=== PATIENT | female | born 1980 | race Caucasian/White ===

== ENCOUNTER 2016-10-10 02:03 | Emergency (ER) | payer OTHER ==
--- NOTE | 2016-10-10 02:16 | EDM.PDOC ---
ED HPI GENERAL MEDICAL PROBLEM - General Chief Complaint: Abdominal Pain Stated Complaint: BOWEL BLOCKAGE Time Seen by Provider: 10/10/16 02:16 - History of Present Illness INITIAL COMMENTS - FREE TEXT/NARRATIVE: HISTORY AND PHYSICAL: History of present illness: Patient 36-year-old white female who is on OxyContin for chronic back pain Xanax and Adderall presents with a concern of constipation despite a chronic problem she states that several bowel movements and last 7 days his concern of possible bowel obstruction and no vomiting no chills no urinary symptoms no trauma and no other concern. Review of systems: As per history of present illness and below otherwise all systems reviewed and negative. Past medical history: As per history of present illness and as reviewed below otherwise noncontributory. Surgical history: As per history of present illness and as reviewed below otherwise noncontributory. Social history: No reported history of drug or alcohol abuse. Family history: As per history of present illness and as reviewed below otherwise noncontributory. Physical exam: HEENT: Atraumatic, normocephalic, pupils reactive, negative for conjunctival pallor or scleral icterus, mucous membranes moist, throat clear, neck supple, nontender, trachea midline. Lungs: Clear to auscultation, breath sounds equal bilaterally, chest nontender. Heart: S1S2, regular, negative for clicks, rubs, or JVD. Abdomen: Soft, nondistended, nontender. Negative for masses or hepatosplenomegaly. Negative for costovertebral tenderness. Pelvis: Stable nontender. Genitourinary: Deferred. Rectal: Deferred. Extremities: Atraumatic, negative for cords or calf pain. Neurovascular unremarkable. Neuro: Awake, alert, oriented. Cranial nerves II through XII unremarkable. Cerebellum unremarkable. Motor and sensory unremarkable throughout. Exam nonfocal. Diagnostics: Acute abdominal series Therapeutics: None Impression: #1 opiate-induced constipation Definitive disposition and diagnosis as appropriate pending reevaluation and review of above. Abdomen Pain Score (Numeric/FACES): 5 - Related Data Allergies Allergy/AdvReac Type Severity Reaction Status Date / Time azithromycin Allergy Anxiety Verified 10/10/16 02:07 buspirone Allergy Anxiety Verified 10/10/16 02:07 Home Meds: Home Meds ALPRAZolam [Xanax XR] 2 tab PO ASDIRECTED PRN 06/29/14 [History] Spironolactone [Aldactone] 1 tab PO DAILY 06/29/14 [History] Venlafaxine HCl [Venlafaxine ER] 150 mg PO DAILY 06/29/14 [History] Ibuprofen 1 - 2 tab PO ASDIRECTED PRN 03/13/16 [History] Dextroamphetamine/Amphetamine [Dextroamp-Amphetamin 10 mg Tab] 10 mg PO DAILY [History] Omeprazole 20 mg PO BEDTIME 03/15/16 [History] traZODone HCl [Trazodone HCl] 1 mg PO BEDTIME 03/15/16 [History] Past Medical History HEENT History: Reports: Allergic rhinitis Cardiovascular History: Reports: None Respiratory History: Reports: None Gastrointestinal History: Reports: GERD Other Gastrointestinal History: hx gastric ulcer Genitourinary History: Reports: None 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: Musculoskeletal History: Reports: Fibromyalgia Neurological History: Reports: Migraines Psychiatric History: Reports: Anxiety, Depression, Suicide attempt Endocrine/Metabolic History: Reports: None Hematologic History: Reports: None Immunologic History: Reports: None Oncologic (Cancer) History: Reports: None Dermatologic History: Reports: Other (see below) Other Dermatologic History: acne - Infectious Disease History Infectious Disease History: Reports: Chicken pox - Past Surgical History Head Surgeries/Procedures: Reports: None HEENT Surgical History: Reports: Naso-sinus surgery GI Surgical History: Reports: Stew fundoplication Social & Family History - Family History Family Medical History: Unobtainable - Tobacco Use Smoking Status *Q: Current Every Day Smoker Years of Tobacco use: 4 Packs/Tins Daily: 0 - Alcohol Use Days Per Week of Alcohol Use: 0 Number of Drinks Per Day: 0 Total Drinks Per Week: 0 - Recreational Drug Use Recreational Drug Use: No Drug Use in Last 12 Months: No ED ROS GENERAL - Review of Systems Review Of Systems: ROS reveals no pertinent complaints other than HPI. ED EXAM, GENERAL - Physical Exam Exam: See Below (See dictation) Course - Vital Signs Last Recorded V/S: Last Vital Signs Temp 37.1 C 10/10/16 02:07 Pulse 108 H 10/10/16 02:07 Resp 16 10/10/16 02:07 BP 120/80 10/10/16 02:07 Pulse Ox 98 10/10/16 02:07 - Orders/Labs/Meds Orders: Active Orders 24 hr Category Date Time Status Abdomen 2V AP Flat Upright [CR] Stat Exams 10/10/16 02:12 Ordered Chest 1V Frontal [CR] Stat Exams 10/10/16 02:12 Ordered Departure - Departure Time of Disposition: 02:15 Disposition: Home, Self-Care 01 Condition: good Clinical Impression: Constipation Forms: ED Department Discharge Additional Instructions: The following information is given to patients seen in the emergency department who are being discharged to home. This information is to outline your options for follow-up care. We provide all patients seen in our emergency department with a follow-up referral. The need for follow-up, as well as the timing and circumstances, are variable depending upon the specifics of your emergency department visit. If you don't have a primary care physician on staff, we will provide you with a referral. We always advise you to contact your personal physician following an emergency department visit to inform them of the circumstance of the visit and for follow-up with them and/or the need for any referrals to a consulting specialist. The emergency department will also refer you to a specialist when appropriate. This referral assures that you have the opportunity for followup care with a specialist. All of these measure are taken in an effort to provide you with optimal care, which includes your followup. Under all circumstances we always encourage you to contact your private physician who remains a resource for coordinating your care. When calling for followup care, please make the office aware that this follow-up is from your recent emergency room visit. If for any reason you are refused follow-up, please contact the [facility] emergency department at and asked to speak to the emergency department charge nurse. Colace as prescribed push fluids follow up primary medical doctor one to 2 days return as needed as discussed - My Orders Last 24 Hours: My Active Orders 10/10/16 02:12 Abdomen 2V AP Flat Upright [CR] Stat Chest 1V Frontal [CR] Stat - Assessment/Plan Last 24 Hours: My Active Orders 10/10/16 02:12 Abdomen 2V AP Flat Upright [CR] Stat Chest 1V Frontal [CR] Stat
[2016-10-10 03:20] VITALS: BP 109/73
--- NOTE | 2016-10-10 14:56 | CR ---
EXAM DATE: 10/10/16 PATIENT'S AGE: 36 Patient: REJI RAINEY Facility: [place], [place] Site . Site : 1980 Study: XRay Chest [id number]/[id number] 2:36:49 AM Ordering Physician: Doctor Jones Final Report: INDICATION: pain, sob TECHNIQUE: Chest 1 view COMPARISON: None FINDINGS: Cardiovascular and mediastinum: Heart size and vasculature are normal in caliber and appearance. Mediastinum is within normal limits. Lungs and pleural space: No focal consolidation. No sign of pleural effusion. No pneumothorax. Bones and soft tissues: No significant findings. IMPRESSION: No acute cardiopulmonary disease. Dictated by Elbert Colunga MD @ 10/10/2016 2:54:41 AM Dictated by: Elbert Colunga MD @ 10/10/2016 02:54:47 (Electronic Signature) Report Signed by Proxy and Original Signed Document filed in the Medical Record. [email or web address]
--- NOTE | 2016-10-10 14:56 | CR ---
EXAM DATE: 10/10/16 PATIENT'S AGE: 36 Patient: REJI RAINEY Facility: [place], [place] Site . Site : 1980 Study: XRay Abdomen [id number]/[id number] 2:36:26 AM Ordering Physician: Doctor Jones Final Report: INDICATION: constipation x1 week TECHNIQUE: Abdomen 3 view COMPARISON: None FINDINGS: Bowel: Nonspecific air-fluid levels within the colon. Soft tissues: Surgical clips in the left upper quadrant. No sign of soft tissue mass. No suspicious calcifications. Bones: Unremarkable for age. IMPRESSION: Nonspecific air-fluid levels within the colon. Dictated by Elbert Colunga MD @ 10/10/2016 2:53:43 AM Dictated by: Elbert Colunga MD @ 10/10/2016 02:53:52 (Electronic Signature) Report Signed by Proxy and Original Signed Document filed in the Medical Record. [email or web address]
== END 2016-10-10 03:10 | disposition home or self-care (01) ==
LOC: MW.ED 02:03
DX: K59.00 Constipation, unspecified (principal); K21.9 Gastro-esophageal reflux disease without esophagitis; F17.210 Nicotine dependence, cigarettes, uncomplicated; Z88.6 Allergy status to analgesic agent; Z88.8 Allergy status to other drugs, medicaments and biological substances; Z79.899 Other long term (current) drug therapy; Z98.890 Other specified postprocedural states
CPT/HCPCS: 71010; 71010-26; 74020; 74020-26; 99282; 99283

== ENCOUNTER 2017-04-18 06:44 | Day surgery (SDC) | payer OTHER ==
[2017-04-18] MEDS ORDERED: ceFAZolin 2 GM in Premix Bag 1 BAG IV ONE (07:00)
[2017-04-18] MEDS ORDERED: Lactated Ringers 1,000 ML IV SCH (07:00)
[2017-04-18] MEDS ORDERED: Propofol 200 MG/20 ML SDV ONE (07:26)
[2017-04-18] MEDS ORDERED: Ondansetron 4 MG/2 ML SDV ONE (07:26)
[2017-04-18] MEDS ORDERED: Midazolam 1 MG/ML 2 ML SDV ONE (07:27)
[2017-04-18] MEDS ORDERED: fentaNYL 100 MCG/2 ML SDV ONE (07:27)
[2017-04-18] MEDS ORDERED: Bupivacaine 0.25%/EPINEPHrine 1:200,000 10 ML SDV INJECT ONE (07:30)
--- NOTE | 2017-04-18 07:33 | PCM.PREANE ---
Preanesthetic Assessment - Anesthesia/Transfusion/Family Hx Anesthesia History: Prior Anesthesia Without Reaction Other Type of Anesthesia Reaction Comment: Denies any known problems in the past Family History of Anesthesia Reaction: No Transfusion History: No Prior Transfusion(s) - Review of Systems General: No Symptoms Pulmonary: No Symptoms Cardiovascular: No Symptoms Gastrointestinal: No Symptoms Neurological: No Symptoms Other: Reports: None - Physical Assessment NPO Status Date: 04/17/17 Height: 1.63 m Weight: 56.699 kg ASA Class: 2 Mental Status: Alert & Oriented x3 Airway Class: Mallampati = 2 Dentition: Reports: Normal Dentition Lungs: Clear to Auscultation, Normal Respiratory Effort Cardiovascular: Regular Rate, Regular Rhythm - Lab Values: Laboratory Last Values Urine HCG, Qual NEGATIVE (NEGATIVE) 04/18/17 07:00 - Allergies Allergies/Adverse Reactions: Allergies Allergy/AdvReac Type Severity Reaction Status Date / Time azithromycin Allergy Anxiety Verified 10/10/16 02:07 buspirone Allergy Anxiety Verified 10/10/16 02:07 - Anesthesia Plan Pre-Op Medication Ordered: None - Acknowledgements Anesthesia Type Planned: MAC Pt an Appropriate Candidate for the Planned Anesthesia: Yes Alternatives and Risks of Anesthesia Discussed w Pt/Guardian: Yes Pt/Guardian Understands and Agrees with Anesthesia Plan: Yes PreAnesthesia Questionnaire HEENT History: Reports: Allergic Rhinitis, Other (See Below) Other HEENT History: wears glasses/contacts Cardiovascular History: Reports: None Respiratory History: Reports: None Gastrointestinal History: Reports: GERD Other Gastrointestinal History: hx gastric ulcer Genitourinary History: Reports: None 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: Musculoskeletal History: Reports: Back Pain, Chronic, Fracture, Fibromyalgia Other Musculoskeletal History: hx fx leg Neurological History: Reports: Migraines Psychiatric History: Reports: Anxiety, Depression, Suicide Attempt Endocrine/Metabolic History: Reports: None Hematologic History: Reports: None Immunologic History: Reports: None Oncologic (Cancer) History: Reports: None Dermatologic History: Reports: Other (See Below) Other Dermatologic History: acne - Infectious Disease History Infectious Disease History: Reports: Chicken Pox - Past Surgical History Head Surgeries/Procedures: Reports: None HEENT Surgical History: Reports: Naso-Sinus Surgery GI Surgical History: Reports: Stew Fundoplication Female Surgical History: Reports: Breast Reduction - SUBSTANCE USE Smoking Status *Q: Current Every Day Smoker Tobacco Use Within Last Twelve Months: Other (See Below) Other Tobacco Use Within Last Twelve Months: vapor with nicotine content Days Per Week of Alcohol Use: 0 Number of Drinks Per Day: 0 Total Drinks Per Week: 0 Recreational Drug Use History: No - HOME MEDS Home Medications: Home Meds ALPRAZolam [Xanax XR] 1 mg PO ASDIRECTED PRN 06/29/14 [History] Spironolactone [Aldactone] 100 mg PO DAILY 06/29/14 [History] Ibuprofen 1 - 2 tab PO ASDIRECTED PRN 03/13/16 [History] Dextroamphetamine/Amphetamine [Dextroamp-Amphetamin 10 mg Tab] 40 mg PO DAILY [History] Omeprazole 20 mg PO DAILY 03/15/16 [History] traZODone HCl [Trazodone HCl] 200 mg PO BEDTIME 03/15/16 [History] Clindamycin Phos/Benzoyl Perox [Benzaclin Gel] 1 applic TOP ASDIRECTED PRN 04/13 [History] DULoxetine [Cymbalta] 20 mg PO DAILY 04/13/17 [History] Tretinoin/Emollient Base [Tretinoin 0.05% Emollient Crm] 1 applic TOP ASDIRECTED 04/13/17 [History] - CURRENT (IN HOUSE) MEDS Current Meds: Current Medications Hydrocodone Bitart/Acetaminophen ([place] 325-5 Mg) 1 tab PO Q4H PRN PRN Reason: Pain Lactated Ringer's (Ringers, Lactated) 1,000 mls @ 125 mls/hr IV ASDIRECTED RHIANNON Last Admin: 04/18/17 07:18 Dose: 125 mls/hr Discontinued Medications Bupivacaine HCl/Epinephrine Bitart (Marcaine 0.25%/Epinephrine 1:200,000) 10 ml INJECT ONETIME ONE Stop: 04/18/17 07:31 Fentanyl (Sublimaze) Confirm Administered Dose 100 mcg .ROUTE .STK-MED ONE Stop: 04/18/17 07:28 Cefazolin Sodium/Dextrose 2 gm (/ Premix) 50 mls @ 100 mls/hr IV ONETIME ONE Stop: 04/18/17 07:29 Midazolam HCl (Versed 1 Mg/Ml) Confirm Administered Dose 2 mg .ROUTE .STK-MED ONE Stop: 09/13/17 07:28 Ondansetron HCl (Zofran) Confirm Administered Dose 4 mg .ROUTE .STK-MED ONE Stop: 04/18/17 07:27 Propofol (Diprivan 20 Ml) Confirm Administered Dose 200 mg .ROUTE .STK-MED ONE Stop: 04/18/17 07:27
[2017-04-18] MEDS ORDERED: Acetaminophen/HYDROcodone 325-5 MG Tab PO PRN (08:00)
[2017-04-18] MEDS ORDERED: ePHEDrine 50 MG/ML SDV ONE (08:06)
[2017-04-18] MEDS ORDERED: Dexamethasone 4 MG/ML 5 ML MDV ONE (08:08)
[2017-04-18] MEDS ORDERED: Ketorolac 30 MG/ML SDV ONE (08:33)
--- NOTE | 2017-04-18 08:57 | PCM.POSTAN ---
POST ANESTHESIA ASSESSMENT - MENTAL STATUS Mental Status: Alert, Oriented - RESPIRATORY Respiratory Status: Respiratory Rate WNL, Airway Patent, O2 Saturation Stable - CARDIOVASCULAR CV Status: Pulse Rate WNL, Blood Pressure Stable - GASTROINTESTINAL GI Status: No Symptoms - POST OP HYDRATION Hydration Status: Adequate & Stable
--- NOTE | 2017-04-18 08:57 | PCM48HPAN ---
Post Anesthesia Note - EVALUATION WITHIN 48HRS OF ANESTHETIC Vital Signs in Normal Range: Yes Patient Participated in Evaluation: Yes Respiratory Function Stable: Yes Airway Patent: Yes Cardiovascular Function Stable: Yes Hydration Status Stable: Yes Pain Control Satisfactory: Yes Nausea and Vomiting Control Satisfactory: Yes Mental Status Recovered: Yes
[2017-04-18 09:27] VITALS: BP 118/68
--- NOTE | 2017-04-18 11:37 | PCM.OPNOTE ---
- General Post-Op/Procedure Note Date of Surgery/Procedure: 04/18/17 Operative Procedure(s): excision fo nailbed scar and nailbed repair Pre Op Diagnosis: nailbed scar with inhibition of nail growth Post-Op Diagnosis: Same Anesthesia Technique: General LMA, Local Primary Surgeon: Doris Alvarado [place] Hand: Isela Singh Complications: None Condition: Good Free Text/Narrative:: Intake & Output 04/17/17 04/18/17 04/18/17 23:59 07:59 15:59 Intake Total 1899 Balance 1899
--- NOTE | 2017-04-19 11:21 | OR ---
SURGEON: BRITTON VINCENT MD DATE OF PROCEDURE: 04/18/2017 PREOPERATIVE DIAGNOSIS: Nail bed scar, status post open distal phalanx fracture over a year ago. POSTOPERATIVE DIAGNOSIS: Nail bed scar, status post open distal phalanx fracture over a year ago. PROCEDURE: Excision of nail bed scar and direct nail bed repair. ADMISSIONS NURSE: NELSON Longoria ANESTHESIA: General LMA. INDICATIONS: Ms. Collins is a 36-year-old female who had an injury to her finger almost a year ago. Unfortunately, she was unable to obtain the appropriate care at that time due to prior approval and referral through her health system. Because of that, her nails did grow in an abnormal fashion. There was a scar of the nail bed laceration. Risks and benefits of excision repair of this were discussed with her and she was in agreement to proceed. Risks were including, but not limited to, bleeding, infection, damage to underlying or overlying structures, possible need for future interventions, possible scarring. PROCEDURE IN DETAIL: After informed consent was obtained and placed on the chart, the patient was brought to the operating theater and laid in supine position. After adequate general LMA and local anesthesia was obtained, the area was prepped and draped, and a time-out was completed to confirm side and site. The finger was then exsanguinated and a finger tourniquet was placed. The nail was removed to the proximal fold with a sliver left in place to stent this open. The nail scar was not directly visualized to be overlapping and this was excised using a [address] down to the bone. A minimal amount of undermining was then done and a 7-0 chromic stitch was used to reapproximate this in a smooth fashion. She tolerated this well and the wound was dressed with Xeroform fluffs and a Kerlix gauze dressing. She tolerated the procedure well. All counts and needles were correct at the end the case. FOLLOWUP INSTRUCTIONS: The patient will see us in 10 days for re-evaluation or sooner if any problems, questions, or concerns and was given a prescription for pain control. NIDA / ANA /[id number]
== END 2017-04-18 09:27 | disposition home or self-care (01) ==
LOC: MW.SDS 06:44
PROVIDERS: ATTEND Plastic Surgery
DX: L90.5 Scar conditions and fibrosis of skin (principal); L60.8 Other nail disorders; F41.9 Anxiety disorder, unspecified; F32.9 Major depressive disorder, single episode, unspecified; F17.210 Nicotine dependence, cigarettes, uncomplicated; K21.9 Gastro-esophageal reflux disease without esophagitis; M79.7 Fibromyalgia; Z88.1 Allergy status to other antibiotic agents; Z88.8 Allergy status to other drugs, medicaments and biological substances; Z79.899 Other long term (current) drug therapy; Z86.19 Personal history of other infectious and parasitic diseases; Z91.5 Personal history of self-harm; Z98.890 Other specified postprocedural states
CPT/HCPCS: 11750; 81025; J0690; J1100; J1885; J2250; J2405; J3010; J7120; 00400; J2704

== ENCOUNTER 2017-07-16 12:12 | Day surgery (SDC) | payer OTHER ==
[~2017-07-16 12:12] MED LIST: Lactated Ringers 1,000 ML IV SCH; Sodium Chloride 0.9% 10 ML Syringe FLUSH PRN; Sodium Chloride 0.9% 2.5 ML Syringe FLUSH PRN; fentaNYL 100 MCG/2 ML SDV IVPUSH PRN
--- NOTE | 2017-07-16 12:45 | PCM.PREANE ---
Preanesthetic Assessment - Anesthesia/Transfusion/Family Hx Anesthesia History: Prior Anesthesia Without Reaction Other Type of Anesthesia Reaction Comment: Denies any known problems in the past Family History of Anesthesia Reaction: No Transfusion History: No Prior Transfusion(s) Intubation History: Unknown - Review of Systems General: No Symptoms Pulmonary: No Symptoms Cardiovascular: No Symptoms Gastrointestinal: No Symptoms Neurological: No Symptoms Other: Reports: None - Physical Assessment Height: 1.64 m Weight: 58.967 kg ASA Class: 2 Mental Status: Alert & Oriented x3 Airway Class: Mallampati = 2 Dentition: Reports: Normal Dentition Thyro-Mental Finger Breadths: 3 Mouth Opening Finger Breadths: 2 ROM/Head Extension: Full Lungs: Clear to Auscultation, Normal Respiratory Effort Cardiovascular: Regular Rate, Regular Rhythm - Allergies Allergies/Adverse Reactions: Allergies Allergy/AdvReac Type Severity Reaction Status Date / Time azithromycin Allergy Anxiety Verified 07/11/17 08:48 buspirone Allergy Anxiety Verified 07/11/17 08:48 - Blood Blood Available: No - Anesthesia Plan Pre-Op Medication Ordered: None - Acknowledgements Anesthesia Type Planned: General Anesthesia Pt an Appropriate Candidate for the Planned Anesthesia: Yes Alternatives and Risks of Anesthesia Discussed w Pt/Guardian: Yes Pt/Guardian Understands and Agrees with Anesthesia Plan: Yes PreAnesthesia Questionnaire HEENT History: Reports: Allergic Rhinitis, Other (See Below) Other HEENT History: wears glasses/contacts Cardiovascular History: Reports: None Respiratory History: Reports: None Gastrointestinal History: Reports: Chronic Constipation, GERD Other Gastrointestinal History: hx gastric ulcer Genitourinary History: Reports: None 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: Musculoskeletal History: Reports: Back Pain, Chronic, Fracture, Fibromyalgia Other Musculoskeletal History: hx fx leg Neurological History: Reports: Migraines, Other (See Below) Other Neuro History: chronic fatigue Psychiatric History: Reports: Anxiety, Depression, Suicide Attempt, Other (See Below) (agorafobia, chronic fatigue) Other Psychiatric History: chronic fatigue, takes adderall for this Endocrine/Metabolic History: Reports: None Hematologic History: Reports: None Immunologic History: Reports: None Oncologic (Cancer) History: Reports: None Dermatologic History: Reports: Eczema - Infectious Disease History Infectious Disease History: Reports: Chicken Pox - Past Surgical History Head Surgeries/Procedures: Reports: None HEENT Surgical History: Reports: Naso-Sinus Surgery, Other (See Below) Other HEENT Surgeries/Procedures: septoplasty GI Surgical History: Reports: Colonoscopy, Hernia Repair/Other Female Surgical History: Reports: Breast Reduction Neurological Surgical History: Reports: C-Spine Other Neurological Surgeries/Procedures: hx anterior cervical disectomy and fusion Musculoskeletal Surgical History: Reports: Other (See Below) Other Musculoskeletal Surgeries/Procedures:: rt hand surgery 1st finger - SUBSTANCE USE Smoking Status *Q: Current Every Day Smoker Tobacco Use Within Last Twelve Months: Other (See Below) Other Tobacco Use Within Last Twelve Months: vapor with nicotine content Days Per Week of Alcohol Use: 0 Number of Drinks Per Day: 0 Total Drinks Per Week: 0 Recreational Drug Use History: No - HOME MEDS Home Medications: Home Meds ALPRAZolam [Xanax XR] 1 mg PO ASDIRECTED PRN 06/29/14 [History] Dextroamphetamine/Amphetamine [Dextroamp-Amphetamin 10 mg Tab] 60 mg PO DAILY [History] traZODone HCl [Trazodone HCl] 2.5 tab PO BEDTIME 03/15/16 [History] DULoxetine [Cymbalta] 30 mg PO DAILY 04/13/17 [History] Etonogestrel [Nexplanon] 1 device IMPLANT ONETIME 07/11/17 [History] Omeprazole 20 mg PO DAILY 07/11/17 [History] Spironolactone [Aldactone] 100 mg PO DAILY 07/11/17 [History] - CURRENT (IN HOUSE) MEDS Current Meds: Current Medications Fentanyl (Sublimaze) 50 - 100 mcg IVPUSH Q5M PRN PRN Reason: Pain Stop: 07/16/17 16:28 Lactated Ringer's (Ringers, Lactated) 1,000 mls @ 100 mls/hr IV ASDIRECTED RHIANNON Last Admin: 07/16/17 12:42 Dose: 100 mls/hr Sodium Chloride (Saline Flush) 10 ml FLUSH ASDIRECTED PRN PRN Reason: Keep Vein Open Sodium Chloride (Saline Flush) 2.5 ml FLUSH ASDIRECTED PRN PRN Reason: Keep Vein Open
[2017-07-16] MEDS ORDERED: Succinylcholine/Normal Saline 200 MG/10 ML Syringe ONE (13:29)
[2017-07-16] MEDS ORDERED: Propofol 200 MG/20 ML SDV ONE (13:29)
[2017-07-16] MEDS ORDERED: Lidocaine 2% 5 ML SDV ONE (13:29)
[2017-07-16] MEDS ORDERED: Rocuronium 10 MG/ML 10 ML Syringe ONE (13:29)
[2017-07-16] MEDS ORDERED: Midazolam 1 MG/ML 2 ML SDV ONE (13:30)
[2017-07-16] MEDS ORDERED: fentaNYL 100 MCG/2 ML SDV ONE (13:30)
[2017-07-16] MEDS ORDERED: Bupivacaine 0.25% 10 ML SDV ONE (14:34)
[2017-07-16] MEDS ORDERED: Ondansetron 4 MG/2 ML SDV ONE (14:58)
[2017-07-16] MEDS ORDERED: Ketorolac 30 MG/ML SDV ONE (14:58)
[2017-07-16] MEDS ORDERED: Neostigmine Methylsulfate 1 MG/ML 5 ML Syringe ONE (14:58)
[2017-07-16] MEDS ORDERED: Ferric Subsulfate Topical Soln 8 GM (8 ML) Bottle ONE (15:15)
--- NOTE | 2017-07-16 15:42 | PCM.OPNOTE ---
- General Post-Op/Procedure Note Date of Surgery/Procedure: 07/16/17 Operative Procedure(s): Diagnostic lapaporoscopy with peritoneal biopsies and cervical biopsies Findings: normal appearing pelvis Pre Op Diagnosis: Postcoital bleeding. Dyspareunia Post-Op Diagnosis: Same Anesthesia Technique: General ET Tube Primary Surgeon: Breann Geiger Pathology: peritoneal biopsy of anterior cul de sac, posterior cul de sac, cervical biopsy 6 oclock, cervical biopsy 1 oclock Fluid Replacement, Intraop: 800 EBL in mLs: 5 Complications: none known Condition: Good Free Text/Narrative:: Dictation [id number]
--- NOTE | 2017-07-16 16:00 | PCM.POSTAN ---
POST ANESTHESIA ASSESSMENT - MENTAL STATUS Mental Status: Alert, Oriented - RESPIRATORY Respiratory Status: Respiratory Rate WNL, Airway Patent, O2 Saturation Stable - CARDIOVASCULAR CV Status: Pulse Rate WNL, Blood Pressure Stable - GASTROINTESTINAL GI Status: No Symptoms - PAIN Pain Score: 3 - POST OP HYDRATION Hydration Status: Adequate & Stable - OBSERVATIONS Free Text/Narrative:: no anesthesia problems
[2017-07-16] MEDS ORDERED: Acetaminophen/oxyCODONE 325-5 MG Tab PO PRN (16:07)
[2017-07-16 17:12] VITALS: BP 99/59
--- NOTE | 2017-07-16 19:29 | OR ---
SURGEON: Breann Geiger M.D. DATE OF PROCEDURE: 07/16/2017 PREOPERATIVE DIAGNOSES: 1. Postcoital bleeding. 2. Dyspareunia. POSTOPERATIVE DIAGNOSES: 1. Postcoital bleeding. 2. Dyspareunia. PROCEDURE PERFORMED: 1. Diagnostic laparoscopy with peritoneal biopsies. 2. Cervical biopsies. PRIMARY SURGEON: Breann Geiger M.D. ANESTHESIA: General ET. ESTIMATED BLOOD LOSS: 5 mL. FLUIDS: 800 mL. COMPLICATIONS: None. FINDINGS: Normal-appearing pelvis, appendix, and smooth liver edge. DISPOSITION: The patient to PACU, stable. INDICATIONS: Isela is a 37-year-old female who has ongoing difficulties over the past number of months with postcoital bleeding and dyspareunia which is new for her. Therefore, she has been treated with modalities including NSAIDs and hormonal therapy without relief of her symptoms. At this point, I have opted to proceed with laparoscopic evaluation to help ensure there is no pelvic pathology creating the symptoms. PROCEDURE IN DETAIL: Risks of procedure have been discussed with the patient and proper consent obtained. The patient was taken to the operating room, where she underwent general endotracheal anesthesia, was placed in modified dorsal lithotomy position, and prepped and draped in the usual sterile fashion. SCDs to the lower extremities. Bladder was drained. Time-out was performed. Speculum was introduced in the vagina. The Inline.me uterine manipulator was gently placed. The speculum was removed. Gloves were changed and attention was turned abdominally. Infraumbilically, 0.25% Marcaine was introduced. A 5 mm skin incision was created. The anterior abdominal wall was tented upward, and a Veress needle introduced. Saline hanging drop test was performed. Pneumoperitoneum was achieved. The Veress needle was removed, and a 5 mm trocar introduced. Laparoscope was introduced. Peritoneal contents were identified. A left lower quadrant trocar was now introduced after prepping the region with 0.25% Marcaine and creating 5 mm skin incision. I thoroughly evaluated the pelvis at this point. The anterior cul-de-sac and posterior cul-de-sac with no specific lesions. Tubes and ovaries appeared normal. Her bowel moved easily away from the posterior cul-de-sac. Appendix was visualized. The liver edge appeared smooth. No adhesions or abnormal lesions were noted. However, given the discomfort, I opted to proceed to biopsy the pelvic peritoneum, the anterior cul-de-sac, and the posterior cul-de-sac. Now, the pelvis was copiously irrigated with normal saline and suction dried. With no other findings, the pneumoperitoneum was released. Trocars were removed under direct visualization in the left lower quadrant. The laparoscope was removed as well as infraumbilical trocar. Skin edges were closed using 3-0 Monocryl in a subcuticular fashion. Attention returned to the vagina. Speculum was re-introduced. The Hulka manipulator was removed. Cervix was visualized. Given the postcoital bleeding, I did biopsy of the cervix at 6 o'clock and 1 o'clock. Specimens to pathology. Monsel was placed on the biopsy site. Hemostasis was evident. The patient tolerated the procedure well overall. She will go to PACU in stable condition. SPECIMENS: To Pathology. JEFFRY / ANA /[id number] FABI
== END 2017-07-16 17:00 | disposition home or self-care (01) ==
LOC: MW.SDS 12:12
PROVIDERS: ATTEND Obstetrics & Gynecology
DX: N93.0 Postcoital and contact bleeding (principal); N94.10 Unspecified dyspareunia; F41.8 Other specified anxiety disorders; F40.00 Agoraphobia, unspecified; J30.9 Allergic rhinitis, unspecified; K59.00 Constipation, unspecified; K21.9 Gastro-esophageal reflux disease without esophagitis; F17.290 Nicotine dependence, other tobacco product, uncomplicated; Z79.899 Other long term (current) drug therapy; Z98.890 Other specified postprocedural states; Z88.1 Allergy status to other antibiotic agents; Z88.8 Allergy status to other drugs, medicaments and biological substances
CPT/HCPCS: 36415; 49321; 57500; 84703; 85027; 88305; A9270; J1885; J2250; J2405; J3010; J7120; 00840; J2704

== ENCOUNTER 2017-07-30 18:16 | Emergency (ER) | payer OTHER ==
[2017-07-30] MEDS ORDERED: Sodium Chloride 0.9% 1,000 ML IV ONE (18:29)
--- NOTE | 2017-07-30 18:32 | EDM.PDOC ---
ED HPI GENERAL MEDICAL PROBLEM - General Chief Complaint: Abdominal Pain Stated Complaint: STOMACH PAIN Time Seen by Provider: 07/30/17 18:23 - History of Present Illness INITIAL COMMENTS - FREE TEXT/NARRATIVE: HISTORY AND PHYSICAL: History of present illness: Patient 37-year-old female has history of chronic abdominal pain with a exploratory laparoscopy on 07/16 to rule out endometriosis this was unremarkable per patient she's had some intermittent bleeding and cramping since has had a subsequent visit that they thought was related to cramping. She' s had no fever chills vomiting or other concern she is currently on Xanax Adderall and hydrocodone Review of systems: As per history of present illness and below otherwise all systems reviewed and negative. Past medical history: As per history of present illness and as reviewed below otherwise noncontributory. Surgical history: As per history of present illness and as reviewed below otherwise noncontributory. Social history: No reported history of drug or alcohol abuse. Family history: As per history of present illness and as reviewed below otherwise noncontributory. Physical exam: HEENT: Atraumatic, normocephalic, pupils reactive, negative for conjunctival pallor or scleral icterus, mucous membranes moist, throat clear, neck supple, nontender, trachea midline. Lungs: Clear to auscultation, breath sounds equal bilaterally, chest nontender. Heart: S1S2, regular, negative for clicks, rubs, or JVD. Abdomen: Soft, nondistended, no localized tenderness. Negative for masses or hepatosplenomegaly. Negative for costovertebral tenderness. Pelvis: Stable nontender. Genitourinary: Deferred. Rectal: Deferred. Extremities: Atraumatic, negative for cords or calf pain. Neurovascular unremarkable. Neuro: Awake, alert, oriented. Cranial nerves II through XII unremarkable. Cerebellum unremarkable. Motor and sensory unremarkable throughout. Exam nonfocal. Diagnostics: CBC CMP UA UDS EtOH PT/INR hCG CT abdomen and pelvis with IV contrast Therapeutics: Saline 1 L bolus Impression: #1 abdominal pain Definitive disposition and diagnosis as appropriate pending reevaluation and review of above. - Related Data Allergies Allergy/AdvReac Type Severity Reaction Status Date / Time azithromycin Allergy Anxiety Verified 07/30/17 18:31 buspirone Allergy Anxiety Verified 07/30/17 18:31 Home Meds: Home Meds ALPRAZolam [Xanax XR] 1 mg PO ASDIRECTED PRN 06/29/14 [History] Dextroamphetamine/Amphetamine [Dextroamp-Amphetamin 10 mg Tab] 60 mg PO DAILY [History] traZODone HCl [Trazodone HCl] 2.5 tab PO BEDTIME 03/15/16 [History] DULoxetine [Cymbalta] 30 mg PO DAILY 04/13/17 [History] Etonogestrel [Nexplanon] 1 device IMPLANT ONETIME 07/11/17 [History] Omeprazole 20 mg PO DAILY 07/11/17 [History] Spironolactone [Aldactone] 100 mg PO DAILY 07/11/17 [History] oxyCODONE HCl/Acetaminophen [oxyCODONE-Acetaminophen 5-325] 1 - 2 tab PO ASDIRECTED PRN 07/30/17 [History] Past Medical History HEENT History: Reports: Allergic Rhinitis, Other (See Below) Other HEENT History: wears glasses/contacts Cardiovascular History: Reports: None Respiratory History: Reports: None Gastrointestinal History: Reports: Chronic Constipation, GERD Other Gastrointestinal History: hx gastric ulcer Genitourinary History: Reports: None [employer]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: Musculoskeletal History: Reports: Back Pain, Chronic, Fracture, Fibromyalgia Other Musculoskeletal History: hx fx leg Neurological History: Reports: Migraines, Other (See Below) Other Neuro History: chronic fatigue Psychiatric History: Reports: Anxiety, Depression, Suicide Attempt, Other (See Below) (agorafobia, chronic fatigue) Other Psychiatric History: chronic fatigue, takes adderall for this Endocrine/Metabolic History: Reports: None Hematologic History: Reports: None Immunologic History: Reports: None Oncologic (Cancer) History: Reports: None Dermatologic History: Reports: Eczema - Infectious Disease History Infectious Disease History: Reports: Chicken Pox - Past Surgical History Head Surgeries/Procedures: Reports: None HEENT Surgical History: Reports: Naso-Sinus Surgery, Other (See Below) Other HEENT Surgeries/Procedures: septoplasty GI Surgical History: Reports: Colonoscopy, Hernia Repair/Other Female Surgical History: Reports: Breast Reduction Neurological Surgical History: Reports: C-Spine Other Neurological Surgeries/Procedures: hx anterior cervical disectomy and fusion Musculoskeletal Surgical History: Reports: Other (See Below) Other Musculoskeletal Surgeries/Procedures:: rt hand surgery 1st finger Social & Family History - Family History Family Medical History: Unobtainable - Tobacco Use Smoking Status *Q: Current Every Day Smoker Years of Tobacco use: 4 Packs/Tins Daily: 0 - Caffeine Use Caffeine Use: Reports: Coffee, Soda - Alcohol Use Days Per Week of Alcohol Use: 0 Number of Drinks Per Day: 0 Total Drinks Per Week: 0 - Recreational Drug Use Recreational Drug Use: No Drug Use in Last 12 Months: No ED ROS GENERAL - Review of Systems Review Of Systems: ROS reveals no pertinent complaints other than HPI. ED EXAM, GENERAL - Physical Exam Exam: See Below (See dictation) Course - Vital Signs Last Recorded V/S: Last Vital Signs Temp 37.0 C 07/30/17 18:28 Pulse 88 07/30/17 19:13 Resp 18 07/30/17 19:13 BP 115/73 07/30/17 19:13 Pulse Ox 100 07/30/17 19:13 - Orders/Labs/Meds Orders: Active Orders 24 hr Category Date Time Status Abdomen Pelvis w Cont [CT] Stat Exams 07/30/17 18:29 Taken Labs: Laboratory Tests 07/30/17 07/30/17 07/30/17 Range/Units 18:32 18:32 18:48 WBC 12.01 H (4.0-11.0) K/uL RBC 4.58 (4.30-5.90) M/uL Hgb 14.0 (12.0-16.0) g/dL Hct 41.2 (36.0-46.0) % MCV 90.0 (80.0-98.0) fL MCH 30.6 (27.0-32.0) pg MCHC 34.0 (31.0-37.0) g/dL RDW Std Deviation 43.6 (28.0-62.0) fl RDW Coeff of Rogers 13 (11.0-15.0) % Plt Count 310 (150-400) K/uL MPV 9.70 (7.40-12.00) fL Neut % (Auto) 72.6 (48.0-80.0) % Lymph % (Auto) 19.7 (16.0-40.0) % [place] % (Auto) 6.2 (0.0-15.0) % Eos % (Auto) 1.2 (0.0-7.0) % Baso % (Auto) 0.3 (0.0-1.5) % Neut # (Auto) 8.7 H (1.4-5.7) K/uL Lymph # (Auto) 2.4 (0.6-2.4) K/uL [place] # (Auto) 0.7 (0.0-0.8) K/uL Eos # (Auto) 0.1 (0.0-0.7) K/uL Baso # (Auto) 0.0 (0.0-0.1) K/uL Nucleated RBC % 0.0 /100WBC Nucleated RBCs # 0 K/uL INR (0.86-1.11) Sodium (136-146) mmol/L Potassium (3.5-5.1) mmol/L Chloride (98-110) mmol/L Carbon Dioxide (21-31) mmol/L BUN (6.0-23.0) mg/dL Creatinine (0.6-1.5) mg/dL Est Cr Clr Drug Dosing mL/min Estimated GFR (MDRD) ml/min Glucose (60-110) mg/dL Calcium (8.8-10.8) mg/dL Total Bilirubin (0.1-1.5) mg/dL AST (5-40) IU/L ALT (8-54) IU/L Alkaline Phosphatase (40-150) Total Protein (6.0-8.0) g/dL Albumin (3.5-5.0) g/dL Globulin (2.0-3.5) g/dL Albumin/Globulin Ratio (1.3-2.8) Amylase (10-90) U/L Lipase (7-80) U/L HCG, Qual (NEG) Urine Color YELLOW Urine Appearance CLEAR Urine pH 8.5 H (5.0-8.0) Ur Specific [place] 1.015 (1.001-1.035) Urine Protein NEGATIVE (NEGATIVE) mg/dL Urine Glucose (UA) NEGATIVE (NEGATIVE) mg/dL Urine Ketones NEGATIVE (NEGATIVE) mg/dL Urine Occult Blood NEGATIVE (NEGATIVE) Urine Nitrite NEGATIVE (NEGATIVE) Urine Bilirubin NEGATIVE (NEGATIVE) Urine Urobilinogen 1.0 (<2.0) EU/dL Ur Leukocyte Esterase NEGATIVE (NEGATIVE) Urine RBC 0-2 (0-2/HPF) Urine WBC 0-2 (0-5/HPF) Ur Epithelial Cells FEW (NONE-FEW) Urine Bacteria FEW (NEGATIVE) Urine Opiates Screen NEGATIVE (NEGATIVE) Ur Oxycodone Screen NEGATIVE (NEGATIVE) Urine Methadone Screen NEGATIVE (NEGATIVE) Ur Barbiturates Screen NEGATIVE (NEGATIVE) Ur Phencyclidine Scrn NEGATIVE (NEGATIVE) Ur Amphetamine Screen NEGATIVE (NEGATIVE) U Methamphetamines Scrn NEGATIVE (NEGATIVE) U Benzodiazepines Scrn POSITIVE (NEGATIVE) U Cocaine Metab Screen NEGATIVE (NEGATIVE) U Marijuana (THC) Screen NEGATIVE (NEGATIVE) Ethyl Alcohol mg/dL 07/30/17 07/30/17 07/30/17 Range/Units 18:48 18:48 18:48 WBC (4.0-11.0) K/uL RBC (4.30-5.90) M/uL Hgb (12.0-16.0) g/dL Hct (36.0-46.0) % MCV (80.0-98.0) fL MCH (27.0-32.0) pg MCHC (31.0-37.0) g/dL RDW Std Deviation (28.0-62.0) fl RDW Coeff of Rogers (11.0-15.0) % Plt Count (150-400) K/uL MPV (7.40-12.00) fL Neut % (Auto) (48.0-80.0) % Lymph % (Auto) (16.0-40.0) % [place] % (Auto) (0.0-15.0) % Eos % (Auto) (0.0-7.0) % Baso % (Auto) (0.0-1.5) % Neut # (Auto) (1.4-5.7) K/uL Lymph # (Auto) (0.6-2.4) K/uL [place] # (Auto) (0.0-0.8) K/uL Eos # (Auto) (0.0-0.7) K/uL Baso # (Auto) (0.0-0.1) K/uL Nucleated RBC % /100WBC Nucleated RBCs # K/uL INR 1.00 (0.86-1.11) Sodium 138 (136-146) mmol/L Potassium 3.7 (3.5-5.1) mmol/L Chloride 102 (98-110) mmol/L Carbon Dioxide 25 (21-31) mmol/L BUN 8 (6.0-23.0) mg/dL Creatinine 0.8 (0.6-1.5) mg/dL Est Cr Clr Drug Dosing 83.95 mL/min Estimated GFR (MDRD) > 60.0 ml/min Glucose 105 (60-110) mg/dL Calcium 9.2 (8.8-10.8) mg/dL Total Bilirubin 0.5 (0.1-1.5) mg/dL AST 16 (5-40) IU/L ALT 11 (8-54) IU/L Alkaline Phosphatase 102 (40-150) Total Protein 7.7 (6.0-8.0) g/dL Albumin 4.3 (3.5-5.0) g/dL Globulin 3.4 (2.0-3.5) g/dL Albumin/Globulin Ratio 1.3 (1.3-2.8) Amylase 46 (10-90) U/L Lipase 13 (7-80) U/L HCG, Qual NEGATIVE (NEG) Urine Color Urine Appearance Urine pH (5.0-8.0) Ur Specific [place] (1.001-1.035) Urine Protein (NEGATIVE) mg/dL Urine Glucose (UA) (NEGATIVE) mg/dL Urine Ketones (NEGATIVE) mg/dL Urine Occult Blood (NEGATIVE) Urine Nitrite (NEGATIVE) Urine Bilirubin (NEGATIVE) Urine Urobilinogen (<2.0) EU/dL Ur Leukocyte Esterase (NEGATIVE) Urine RBC (0-2/HPF) Urine WBC (0-5/HPF) Ur Epithelial Cells (NONE-FEW) Urine Bacteria (NEGATIVE) Urine Opiates Screen (NEGATIVE) Ur Oxycodone Screen (NEGATIVE) Urine Methadone Screen (NEGATIVE) Ur Barbiturates Screen (NEGATIVE) Ur Phencyclidine Scrn (NEGATIVE) Ur Amphetamine Screen (NEGATIVE) U Methamphetamines Scrn (NEGATIVE) U Benzodiazepines Scrn (NEGATIVE) U Cocaine Metab Screen (NEGATIVE) U Marijuana (THC) Screen (NEGATIVE) Ethyl Alcohol < 10.0 mg/dL Meds: Medications Discontinued Medications Generic Name Dose Route Start Last Admin Trade Name Freq PRN Reason Stop Dose Admin Sodium Chloride 1,000 mls @ 999 mls/hr 07/30/17 18:29 07/30/17 18:51 Normal Saline IV 12/25/17 19:29 999 mls/hr STAT ONE Administration Iopamidol 70 ml 07/30/17 19:47 07/30/17 19:48 Isovue Multipack-370 (76%) IVPUSH 07/30/17 19:48 70 ml ONETIME STA Administration Departure - Departure Time of Disposition: 20:31 Disposition: Home, Self-Care 01 Condition: Good Clinical Impression: Abdominal pain - Discharge Information Referrals: PCP,None [Primary Care Provider] - Forms: ED Department Discharge Additional Instructions: The following information is given to patients seen in the emergency department who are being discharged to home. This information is to outline your options for follow-up care. We provide all patients seen in our emergency department with a follow-up referral. The need for follow-up, as well as the timing and circumstances, are variable depending upon the specifics of your emergency department visit. If you don't have a primary care physician on staff, we will provide you with a referral. We always advise you to contact your personal physician following an emergency department visit to inform them of the circumstance of the visit and for follow-up with them and/or the need for any referrals to a consulting specialist. The emergency department will also refer you to a specialist when appropriate. This referral assures that you have the opportunity for followup care with a specialist. All of these measure are taken in an effort to provide you with optimal care, which includes your followup. Under all circumstances we always encourage you to contact your private physician who remains a resource for coordinating your care. When calling for followup care, please make the office aware that this follow-up is from your recent emergency room visit. If for any reason you are refused follow-up, please contact the [facility] emergency department at and asked to speak to the emergency department charge nurse Follow-up primary medical doctor 1-2 days return as needed as discussed[] - My Orders Last 24 Hours: My Active Orders 07/30/17 18:29 Abdomen Pelvis w Cont [CT] Stat - Assessment/Plan Last 24 Hours: My Active Orders 07/30/17 18:29 Abdomen Pelvis w Cont [CT] Stat
[2017-07-30 19:19] LABS: CHLORIDE,CL 102 mmol/L (98-110); SODIUM,NA 138 mmol/L (136-146)
[2017-07-30] MEDS ORDERED: Iopamidol 755 MG/ML 500 ML Multipack Bottle IVPUSH STA (19:47)
[2017-07-30 20:56] VITALS: BP 110/66
--- NOTE | 2017-07-31 16:42 | CT ---
EXAM DATE: 07/30/17 PATIENT'S AGE: 37 Patient: REJI RAINEY Facility: [place], [place] Site . Site : [id number] Study: CT Abdomen/Pelvis W CONT [id number]/[id number] 7:50:37 PM Ordering Physician: Gina Renteria Final Report: INDICATION: Abdominal pain on and off since last Sunday with worsening of pain today. Technique: CT abdomen and pelvis performed after IV injection of 70 mL of Isovue-370. Findings: Minimal opacity in the dependent lung bases consistent with subpleural atelectasis. Postsurgical changes along the left upper abdomen and stomach. Mild prominence of the left renal pelvis. Right kidney mildly atrophic compared to the left. Ill-defined low density and nodularity in the aortocaval and left periaortic abdominal retroperitoneum likely related to mild lymph node prominence. Cyst or follicle in the left ovary. Uterus is heterogeneous in density and enhancement especially in the cervical region. Moderate amount of stool in the right colon. The appendix is normal were seen. Remainder negative. Impression: 1. Postsurgical changes left upper abdomen. 2. Cysts or follicles in the left ovary likely physiologic. 3. Moderate amount of stool in the right colon. 4. Small mildly prominent lymph nodes in the abdominal retroperitoneum probably reactive in nature. 5. Not mentioned above is a small amount fluid and soft tissue stranding in the mid and lower pelvis anteriorly extending along the anterior aspect of the urinary bladder which may be related to nonspecific inflammation or edema. Please note that all CT scans at this facility use dose modulation, iterative reconstruction, and/or weight-based dosing when appropriate to reduce radiation dose to as low as reasonably achievable. Dictated by Brendon Young MD @ Jul 30 2017 8:17PM (Electronic Signature) Report Signed by Proxy. FABI
== END 2017-07-30 20:50 | disposition home or self-care (01) ==
LOC: MW.ED 18:16
DX: R10.9 Unspecified abdominal pain (principal); F17.210 Nicotine dependence, cigarettes, uncomplicated; Z88.1 Allergy status to other antibiotic agents; Z88.8 Allergy status to other drugs, medicaments and biological substances; Z79.899 Other long term (current) drug therapy
CPT/HCPCS: 36415; 74177; 80053; 80305; 81001; 82150; 83690; 84703; 85025; 85610; 96360; 96361; 99284; G0480; J7040; Q9967; 99283

== ENCOUNTER 2018-08-16 18:57 | Emergency (ER) | payer OTHER ==
--- NOTE | 2018-08-16 19:32 | EDM.PDOC ---
ED HPI GENERAL MEDICAL PROBLEM - General Chief Complaint: General Stated Complaint: PAIN ALL OVER Time Seen by Provider: 08/16/18 19:31 Source of Information: Reports: Patient History Limitations: Reports: No Limitations - History of Present Illness INITIAL COMMENTS - FREE TEXT/NARRATIVE: HISTORY AND PHYSICAL: History of present illness: Patient is a 38-year-old female here with complaint of generalized body aches that started at noon today. She has history of fibromyalgia states that this feels different. She has had a sore throat and mild cough since yesterday. Denies fevers, chills, nausea, vomiting, diarrhea, abdominal pain, chest pain, shortness of breath. She does have oxycodone for her fibromyalgia but has not been taking this. Patient sees Dr. Macias at the [facility]. Review of systems: As per history of present illness and below otherwise all systems reviewed and negative. Past medical history: As per history of present illness and as reviewed below otherwise noncontributory. Surgical history: As per history of present illness and as reviewed below otherwise noncontributory. Social history: No reported history of drug or alcohol abuse. Family history: As per history of present illness and as reviewed below otherwise noncontributory. Physical exam: General: Patient sitting comfortably in no acute distress and nontoxic appearing HEENT: Atraumatic, normocephalic, pupils reactive, negative for conjunctival pallor or scleral icterus, mucous membranes moist, throat clear, neck supple, nontender, trachea midline. No meningeal signs. Lungs: Clear to auscultation, breath sounds equal bilaterally, chest nontender. Heart: S1S2, regular, negative for clicks, rubs, or overt murmur. Abdomen: Soft, nondistended, nontender. Negative for masses or hepatosplenomegaly. Negative for costovertebral tenderness. Pelvis: Stable nontender. Genitourinary: Deferred. Rectal: Deferred. Extremities: Atraumatic, negative for cords or calf pain. Neurovascular unremarkable. Neuro: Awake, alert, oriented. Cranial nerves II through XII unremarkable. Cerebellum unremarkable. Motor and sensory unremarkable throughout. Exam nonfocal. Notes: Diagnostics: Rapid strep, influenza, CBC, CMP, UA Therapeutics: None Prescriptions: None Impression: Myalgias Plan: 1. Heat and motrin or tylenol as needed. 2. Follow up with primary care provider 3. Return to ED as needed as discussed Definitive disposition and diagnosis as appropriate pending reevaluation and review of above. generalized bodyaches Pain Score (Numeric/FACES): 8 - Related Data Allergies Allergy/AdvReac Type Severity Reaction Status Date / Time azithromycin Allergy Anxiety Verified 08/16/18 19:17 buspirone Allergy Anxiety Verified 08/16/18 19:17 Home Meds: Home Meds ALPRAZolam [Xanax XR] 1 mg PO ASDIRECTED PRN 06/29/14 [History] traZODone HCl [Trazodone HCl] 100 tab PO BEDTIME 03/15/16 [History] DULoxetine [Cymbalta] 30 mg PO DAILY 04/13/17 [History] Etonogestrel [Nexplanon] 1 device IMPLANT ONETIME 07/11/17 [History] Omeprazole 20 mg PO DAILY 07/11/17 [History] Spironolactone [Aldactone] 100 mg PO DAILY 07/11/17 [History] oxyCODONE HCl/Acetaminophen [oxyCODONE-Acetaminophen 5-325] 1 - 2 tab PO ASDIRECTED PRN 07/30/17 [History] Dextroamphetamine/Amphetamine [Adderall] 25 mg PO DAILY 08/16/18 [History] Past Medical History HEENT History: Reports: Allergic Rhinitis, Other (See Below) Other HEENT History: wears glasses/contacts Cardiovascular History: Reports: None Respiratory History: Reports: None Gastrointestinal History: Reports: Chronic Constipation, GERD Other Gastrointestinal History: hx gastric ulcer Genitourinary History: Reports: None 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: Musculoskeletal History: Reports: Back Pain, Chronic, Fracture, Fibromyalgia Other Musculoskeletal History: hx fx leg Neurological History: Reports: Migraines, Other (See Below) Other Neuro History: chronic fatigue Psychiatric History: Reports: Anxiety, Depression, PTSD, Suicide Attempt, Other (See Below) Other Psychiatric History: chronic fatigue, takes adderall for this Endocrine/Metabolic History: Reports: None Hematologic History: Reports: None Immunologic History: Reports: None Oncologic (Cancer) History: Reports: None Dermatologic History: Reports: Eczema - Infectious Disease History Infectious Disease History: Reports: Chicken Pox - Past Surgical History Head Surgeries/Procedures: Reports: None HEENT Surgical History: Reports: Naso-Sinus Surgery, Other (See Below) Other HEENT Surgeries/Procedures: septoplasty GI Surgical History: Reports: Colonoscopy, Hernia Repair/Other Female Surgical History: Reports: Breast Reduction Neurological Surgical History: Reports: C-Spine Other Neurological Surgeries/Procedures: hx anterior cervical disectomy and fusion Musculoskeletal Surgical History: Reports: Other (See Below) Other Musculoskeletal Surgeries/Procedures:: rt hand surgery 1st finger Social & Family History - Family History Family Medical History: Noncontributory - Tobacco Use Smoking Status *Q: Former Smoker Used Tobacco, but Quit: Yes Month/Year Tobacco Last Used: "yesterday" - Caffeine Use Caffeine Use: Reports: Coffee, Soda - Recreational Drug Use Recreational Drug Use: No ED ROS GENERAL - Review of Systems Review Of Systems: ROS reveals no pertinent complaints other than HPI. ED EXAM, GENERAL - Physical Exam Exam: See Below (see dictation) Course - Vital Signs Last Recorded V/S: Last Vital Signs Temp 97.9 F 08/16/18 19:15 Pulse 97 08/16/18 19:15 Resp 18 08/16/18 19:15 BP 99/62 08/16/18 19:15 Pulse Ox 100 08/16/18 19:15 - Orders/Labs/Meds Orders: Active Orders 24 hr Category Date Time Status CULTURE STREP A CONFIRMATION [] Stat Lab 08/16/18 19:27 Results STREP SCRN A RAPID W CULT CONF [] Stat Lab 08/16/18 19:27 Results Labs: Laboratory Tests 08/16/18 08/16/18 08/16/18 Range/Units 20:05 20:10 20:10 WBC 9.98 (4.0-11.0) K/uL RBC 4.64 (4.30-5.90) M/uL Hgb 14.3 (12.0-16.0) g/dL Hct 42.9 (36.0-46.0) % MCV 92.5 (80.0-98.0) fL MCH 30.8 (27.0-32.0) pg MCHC 33.3 (31.0-37.0) g/dL RDW Std Deviation 44.5 (28.0-62.0) fl RDW Coeff of Rogers 13 (11.0-15.0) % Plt Count 242 (150-400) K/uL MPV 9.70 (7.40-12.00) fL Neut % (Auto) 78.8 (48.0-80.0) % Lymph % (Auto) 15.1 L (16.0-40.0) % [place] % (Auto) 4.8 (0.0-15.0) % Eos % (Auto) 1.1 (0.0-7.0) % Baso % (Auto) 0.2 (0.0-1.5) % Neut # (Auto) 7.9 H (1.4-5.7) K/uL Lymph # (Auto) 1.5 (0.6-2.4) K/uL [place] # (Auto) 0.5 (0.0-0.8) K/uL Eos # (Auto) 0.1 (0.0-0.7) K/uL Baso # (Auto) 0.0 (0.0-0.1) K/uL Nucleated RBC % 0.0 /100WBC Nucleated RBCs # 0 K/uL Sodium 139 (136-145) mmol/L Potassium 3.9 (3.5-5.1) mmol/L Chloride 104 (98-107) mmol/L Carbon Dioxide 30.2 (21.0-32.0) mmol/L BUN 14 (7.0-18.0) mg/dL Creatinine 0.9 (0.6-1.0) mg/dL Est Cr Clr Drug Dosing 73.90 mL/min Estimated GFR (MDRD) > 60.0 ml/min Glucose 90 (74-106) mg/dL Calcium 8.6 (8.5-10.1) mg/dL Total Bilirubin 0.3 (0.2-1.0) mg/dL AST 10 L (15-37) IU/L ALT 20 (14-63) IU/L Alkaline Phosphatase 77 (46-116) U/L Total Protein 7.4 (6.4-8.2) g/dL Albumin 3.7 (3.4-5.0) g/dL Globulin 3.7 (2.6-4.0) g/dL Albumin/Globulin Ratio 1.0 (0.9-1.6) Urine Color YELLOW Urine Appearance CLEAR Urine pH 6.0 (5.0-8.0) Ur Specific [place] 1.025 (1.001-1.035) Urine Protein NEGATIVE (NEGATIVE) mg/dL Urine Glucose (UA) NEGATIVE (NEGATIVE) mg/dL Urine Ketones TRACE H (NEGATIVE) mg/dL Urine Occult Blood NEGATIVE (NEGATIVE) Urine Nitrite NEGATIVE (NEGATIVE) Urine Bilirubin NEGATIVE (NEGATIVE) Urine Urobilinogen 0.2 (<2.0) EU/dL Ur Leukocyte Esterase NEGATIVE (NEGATIVE) Urine RBC 0-3 (0-2/HPF) Urine WBC 0-3 (0-5/HPF) Ur Epithelial Cells OCCASIONAL (NONE-FEW) Urine Bacteria FEW (NEGATIVE) Urine Mucus MANY (NONE-MOD) Departure - Departure Time of Disposition: 20:58 Disposition: Home, Self-Care 01 Condition: Good Clinical Impression: Myalgia, Generalized body aches - Discharge Information Referrals: Ben Macias MD [Primary Care Provider] - Forms: ED Department Discharge Additional Instructions: The following information is given to patients seen in the emergency department who are being discharged to home. This information is to outline your options for follow-up care. We provide all patients seen in our emergency department with a follow-up referral. The need for follow-up, as well as the timing and circumstances, are variable depending upon the specifics of your emergency department visit. If you don't have a primary care physician on staff, we will provide you with a referral. We always advise you to contact your personal physician following an emergency department visit to inform them of the circumstance of the visit and for follow-up with them and/or the need for any referrals to a consulting specialist. The emergency department will also refer you to a specialist when appropriate. This referral assures that you have the opportunity for follow-up care with a specialist. All of these measure are taken in an effort to provide you with optimal care, which includes your follow-up. Under all circumstances we always encourage you to contact your private physician who remains a resource for coordinating your care. When calling for follow-up care, please make the office aware that this follow-up is from your recent emergency room visit. If for any reason you are refused follow-up, please contact the [facility] Emergency Department at and asked to speak to the emergency department charge nurse. 1. Heat and motrin or tylenol as needed. 2. Follow up with primary care provider 3. Return to ED as needed as discussed - My Orders Last 24 Hours: My Active Orders 08/16/18 19:27 CULTURE STREP A CONFIRMATION [RM] Stat STREP SCRN A RAPID W CULT CONF [RM] Stat - Assessment/Plan Last 24 Hours: My Active Orders 08/16/18 19:27 CULTURE STREP A CONFIRMATION [RM] Stat STREP SCRN A RAPID W CULT CONF [RM] Stat
[2018-08-16 20:44] LABS: CHLORIDE,CL 104 mmol/L (98-107); SODIUM,NA 139 mmol/L (136-145)
[2018-08-16 21:13] VITALS: BP 97/57
== END 2018-08-16 21:09 | disposition home or self-care (01) ==
LOC: MW.ED 18:57
DX: M79.10 Myalgia, unspecified site (principal); K21.9 Gastro-esophageal reflux disease without esophagitis; F41.9 Anxiety disorder, unspecified; F32.9 Major depressive disorder, single episode, unspecified; Z79.899 Other long term (current) drug therapy; Z87.891 Personal history of nicotine dependence; Z88.1 Allergy status to other antibiotic agents; Z88.8 Allergy status to other drugs, medicaments and biological substances
CPT/HCPCS: 36415; 80053; 81001; 85025; 87081; 87804; 87880-QW; 99283

== ENCOUNTER 2018-10-31 08:30 | Emergency (ER) | payer OTHER ==
--- NOTE | 2018-10-31 10:12 | CR ---
EXAMINATION: Portable chest radiograph. HISTORY: Shortness of breath. Comparison: 10/30/2016. FINDINGS: The trachea is midline. The cardiomediastinal silhouette is within normal limits. No pulmonary infiltrates, effusions or pneumothorax. Osseous structures appear unremarkable. Clips project near the GE junction. IMPRESSION: No acute cardiopulmonary process.
--- NOTE | 2018-10-31 10:26 | EDM.PDOC ---
ED HPI GENERAL MEDICAL PROBLEM - General Chief Complaint: Respiratory Problem Stated Complaint: COUGH Time Seen by Provider: 10/31/18 09:23 - History of Present Illness INITIAL COMMENTS - FREE TEXT/NARRATIVE: HISTORY AND PHYSICAL: History of present illness: Patient 38-year-old white female presents with a concern of sore throat and intermittent cough she states she's had this problem off and on for approximately 6 weeks she's [facility] she does have a scheduled appointment Review of systems: As per history of present illness and below otherwise all systems reviewed and negative. Past medical history: As per history of present illness and as reviewed below otherwise noncontributory. Surgical history: As per history of present illness and as reviewed below otherwise noncontributory. Social history: No reported history of drug or alcohol abuse. Family history: As per history of present illness and as reviewed below otherwise noncontributory. Physical exam: HEENT: Atraumatic, normocephalic, pupils reactive, negative for conjunctival pallor or scleral icterus, mucous membranes moist, throat clear, neck supple, nontender, trachea midline. Lungs: Clear to auscultation, breath sounds equal bilaterally, chest nontender. Heart: S1S2, regular, negative for clicks, rubs, or JVD. Abdomen: Soft, nondistended, nontender. Negative for masses or hepatosplenomegaly. Negative for costovertebral tenderness. Pelvis: Stable nontender. Genitourinary: Deferred. Rectal: Deferred. Extremities: Atraumatic, negative for cords or calf pain. Neurovascular unremarkable. Neuro: Awake, alert, oriented. Cranial nerves II through XII unremarkable. Cerebellum unremarkable. Motor and sensory unremarkable throughout. Exam nonfocal. Diagnostics: CBC CMP rapid strep Monospot chest x-ray Therapeutics: None Impression: #1 medical screening exam Definitive disposition and diagnosis as appropriate pending reevaluation and review of above. bodyaches Pain Score (Numeric/FACES): 5 throat Pain Score (Numeric/FACES): 5 - Related Data Allergies Allergy/AdvReac Type Severity Reaction Status Date / Time azithromycin Allergy Anxiety Verified 10/31/18 08:37 buspirone Allergy Anxiety Verified 10/31/18 08:37 Home Meds: Home Meds traZODone HCl [Trazodone HCl] 100 tab PO BEDTIME 03/15/16 [History] Etonogestrel [Nexplanon] 1 device IMPLANT ONETIME 07/11/17 [History] oxyCODONE HCl/Acetaminophen [oxyCODONE-Acetaminophen 5-325] 1 - 2 tab PO ASDIRECTED PRN 07/30/17 [History] Dextroamphetamine/Amphetamine [Adderall] 25 mg PO DAILY 08/16/18 [History] Past Medical History HEENT History: Reports: Allergic Rhinitis, Other (See Below) Other HEENT History: wears glasses/contacts Cardiovascular History: Reports: None Respiratory History: Reports: None Gastrointestinal History: Reports: Chronic Constipation, GERD Other Gastrointestinal History: hx gastric ulcer Genitourinary History: Reports: None 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: Musculoskeletal History: Reports: Back Pain, Chronic, Fracture, Fibromyalgia Other Musculoskeletal History: hx fx leg Neurological History: Reports: Migraines, Other (See Below) Other Neuro History: chronic fatigue Psychiatric History: Reports: Anxiety, Depression, PTSD, Suicide Attempt, Other (See Below) Other Psychiatric History: chronic fatigue, takes adderall for this Endocrine/Metabolic History: Reports: None Hematologic History: Reports: None Immunologic History: Reports: None Oncologic (Cancer) History: Reports: None Dermatologic History: Reports: Eczema - Infectious Disease History Infectious Disease History: Reports: Chicken Pox - Past Surgical History Head Surgeries/Procedures: Reports: None HEENT Surgical History: Reports: Naso-Sinus Surgery, Other (See Below) Other HEENT Surgeries/Procedures: septoplasty Cardiovascular Surgical History: Reports: None Respiratory Surgical History: Reports: None GI Surgical History: Reports: Colonoscopy, Hernia Repair/Other Female Surgical History: Reports: Breast Reduction Neurological Surgical History: Reports: C-Spine Other Neurological Surgeries/Procedures: hx anterior cervical disectomy and fusion Musculoskeletal Surgical History: Reports: Other (See Below) Other Musculoskeletal Surgeries/Procedures:: rt hand surgery 1st finger Dermatological Surgical History: Reports: None Social & Family History - Family History Family Medical History: Noncontributory - Tobacco Use Smoking Status *Q: Former Smoker Used Tobacco, but Quit: Yes Month/Year Tobacco Last Used: 3 months ago - Caffeine Use Caffeine Use: Reports: Coffee, Soda - Recreational Drug Use Recreational Drug Use: No ED ROS GENERAL - Review of Systems Review Of Systems: ROS reveals no pertinent complaints other than HPI. ED EXAM, GENERAL - Physical Exam Exam: See Below (See dictation) Course - Vital Signs Last Recorded V/S: Last Vital Signs Temp 37.0 C 10/31/18 08:35 Pulse 114 H 10/31/18 08:35 Resp 18 10/31/18 08:35 BP 121/69 10/31/18 08:35 Pulse Ox 100 10/31/18 08:35 - Orders/Labs/Meds Orders: Active Orders 24 hr Category Date Time Status COMPREHENSIVE METABOLIC PN,CMP [CHEM] Stat Lab 10/31/18 10:10 Received CULTURE STREP A CONFIRMATION [RM] Stat Lab 10/31/18 09:39 Results STREP SCRN A RAPID W CULT CONF [RM] Stat Lab 10/31/18 09:39 Results Labs: Laboratory Tests 10/31/18 10/31/18 10/31/18 Range/Units 09:39 10:10 10:10 WBC 8.60 (4.0-11.0) K/uL RBC 4.32 (4.30-5.90) M/uL Hgb 13.1 (12.0-16.0) g/dL Hct 39.5 (36.0-46.0) % MCV 91.4 (80.0-98.0) fL MCH 30.3 (27.0-32.0) pg MCHC 33.2 (31.0-37.0) g/dL RDW Std Deviation 45.1 (28.0-62.0) fl RDW Coeff of Rogers 14 (11.0-15.0) % Plt Count 267 (150-400) K/uL MPV 9.70 (7.40-12.00) fL Neut % (Auto) 68.7 (48.0-80.0) % Lymph % (Auto) 23.4 (16.0-40.0) % [place] % (Auto) 6.3 (0.0-15.0) % Eos % (Auto) 1.3 (0.0-7.0) % Baso % (Auto) 0.3 (0.0-1.5) % Neut # (Auto) 5.9 H (1.4-5.7) K/uL Lymph # (Auto) 2.0 (0.6-2.4) K/uL [place] # (Auto) 0.5 (0.0-0.8) K/uL Eos # (Auto) 0.1 (0.0-0.7) K/uL Baso # (Auto) 0.0 (0.0-0.1) K/uL Nucleated RBC % 0.0 /100WBC Nucleated RBCs # 0 K/uL HCG, Qual NEGATIVE (NEG) Urine Color YELLOW Urine Appearance SLT CLOUDY Urine pH 8.0 (5.0-8.0) Ur Specific [place] 1.015 (1.001-1.035) Urine Protein NEGATIVE (NEGATIVE) mg/dL Urine Glucose (UA) NEGATIVE (NEGATIVE) mg/dL Urine Ketones NEGATIVE (NEGATIVE) mg/dL Urine Occult Blood NEGATIVE (NEGATIVE) Urine Nitrite NEGATIVE (NEGATIVE) Urine Bilirubin NEGATIVE (NEGATIVE) Urine Urobilinogen 0.2 (<2.0) EU/dL Ur Leukocyte Esterase NEGATIVE (NEGATIVE) Monoscreen NEGATIVE (NEG) Departure - Departure Time of Disposition: 11:08 Disposition: Home, Self-Care 01 Condition: Good Clinical Impression: Encounter for medical screening examination - Discharge Information Referrals: PCP,Unknown [Primary Care Provider] - Forms: ED Department Discharge Additional Instructions: The following information is given to patients seen in the emergency department who are being discharged to home. This information is to outline your options for follow-up care. We provide all patients seen in our emergency department with a follow-up referral. The need for follow-up, as well as the timing and circumstances, are variable depending upon the specifics of your emergency department visit. If you don't have a primary care physician on staff, we will provide you with a referral. We always advise you to contact your personal physician following an emergency department visit to inform them of the circumstance of the visit and for follow-up with them and/or the need for any referrals to a consulting specialist. The emergency department will also refer you to a specialist when appropriate. This referral assures that you have the opportunity for followup care with a specialist. All of these measure are taken in an effort to provide you with optimal care, which includes your followup. Under all circumstances we always encourage you to contact your private physician who remains a resource for coordinating your care. When calling for followup care, please make the office aware that this follow-up is from your recent emergency room visit. If for any reason you are refused follow-up, please contact the [facility] emergency department at and asked to speak to the emergency department charge nurse. Keep scheduled appointments as discussed return as needed as discussed - My Orders Last 24 Hours: My Active Orders 10/31/18 09:39 CULTURE STREP A CONFIRMATION [RM] Stat STREP SCRN A RAPID W CULT CONF [RM] Stat 10/31/18 10:10 COMPREHENSIVE METABOLIC PN,CMP [CHEM] Stat - Assessment/Plan Last 24 Hours: My Active Orders 10/31/18 09:39 CULTURE STREP A CONFIRMATION [RM] Stat STREP SCRN A RAPID W CULT CONF [RM] Stat 10/31/18 10:10 COMPREHENSIVE METABOLIC PN,CMP [CHEM] Stat
[2018-10-31 11:15] LABS: CHLORIDE,CL 104 mmol/L (98-107); SODIUM,NA 140 mmol/L (136-145)
[2018-10-31 11:18] VITALS: BP 110/62
== END 2018-10-31 11:16 | disposition home or self-care (01) ==
LOC: MW.ED 08:30
DX: Z13.9 Encounter for screening, unspecified (principal); F41.9 Anxiety disorder, unspecified; F32.9 Major depressive disorder, single episode, unspecified; Z79.899 Other long term (current) drug therapy; Z87.891 Personal history of nicotine dependence; Z88.1 Allergy status to other antibiotic agents; Z88.8 Allergy status to other drugs, medicaments and biological substances
CPT/HCPCS: 36415; 71045; 71045-26; 80053; 81003; 84703; 85025; 86308; 87081; 87880-QW; 99283-25

== ENCOUNTER 2019-01-23 21:50 | Emergency (ER) | payer OTHER ==
[2019-01-23] MEDS ORDERED: Lidocaine 1% 10 ML MDV INJECT ONE (21:59)
[2019-01-23] MEDS ORDERED: Bacitracin Oint 1 GM U/D Packet TOP ONE (22:07)
--- NOTE | 2019-01-23 22:41 | EDM.PDOC ---
ED HPI GENERAL MEDICAL PROBLEM - General Chief Complaint: Laceration Stated Complaint: CUT FINGER ON LT HAND Time Seen by Provider: 01/23/19 22:04 - History of Present Illness INITIAL COMMENTS - FREE TEXT/NARRATIVE: HISTORY AND PHYSICAL: History of present illness: Patient 38-year-old female presents with acute injury to the second digit of her left hand that occurred with a gardening tool tetanus is up-to-date she denies any other concern Review of systems: As per history of present illness and below otherwise all systems reviewed and negative. Past medical history: As per history of present illness and as reviewed below otherwise noncontributory. Surgical history: As per history of present illness and as reviewed below otherwise noncontributory. Social history: No reported history of drug or alcohol abuse. Family history: As per history of present illness and as reviewed below otherwise noncontributory. Physical exam: HEENT: Atraumatic, normocephalic, pupils reactive, negative for conjunctival pallor or scleral icterus, mucous membranes moist, throat clear, neck supple, nontender, trachea midline. Lungs: Clear to auscultation, breath sounds equal bilaterally, chest nontender. Heart: S1S2, regular, negative for clicks, rubs, or JVD. Abdomen: Soft, nondistended, nontender. Negative for masses or hepatosplenomegaly. Negative for costovertebral tenderness. Pelvis: Stable nontender. Genitourinary: Deferred. Rectal: Deferred. Extremities: Patient has a flap type laceration approximately 4 cm to the volar aspect of the distal third of her second digit on the right hand neurovascular exam is unremarkable there's no tendon involvement no foreign body. Neuro: Awake, alert, oriented. Cranial nerves II through XII unremarkable. Cerebellum unremarkable. Motor and sensory unremarkable throughout. Exam nonfocal. Diagnostics: X-ray left hand Therapeutics: patient was anesthetized with 1% lidocaine without epinephrine patient was irrigated prepped and draped in sterile manner and closed with 4-0 nylon interrupted sutures there was some tissue avulsion noted with repair. This could hemostasis status post and patient tolerated procedure well Tubegauz bacitracin dressing was applied Impression: #1 acute injury left hand (laceration first digit) Definitive disposition and diagnosis as appropriate pending reevaluation and review of above. left index figner Pain Score (Numeric/FACES): 10 - Related Data Allergies Allergy/AdvReac Type Severity Reaction Status Date / Time azithromycin Allergy Anxiety Verified 01/23/19 21:51 buspirone Allergy Anxiety Verified 01/23/19 21:51 Home Meds: Home Meds traZODone HCl [Trazodone HCl] 100 tab PO BEDTIME 03/15/16 [History] Etonogestrel [Nexplanon] 1 device IMPLANT ONETIME 07/11/17 [History] Dextroamphetamine/Amphetamine [Adderall] 25 mg PO DAILY 08/16/18 [History] Past Medical History HEENT History: Reports: Allergic Rhinitis, Other (See Below) Other HEENT History: wears glasses/contacts Cardiovascular History: Reports: None Respiratory History: Reports: None Gastrointestinal History: Reports: Chronic Constipation, GERD Other Gastrointestinal History: hx gastric ulcer Genitourinary History: Reports: None [employer]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: Musculoskeletal History: Reports: Back Pain, Chronic, Fracture, Fibromyalgia Other Musculoskeletal History: hx fx leg Neurological History: Reports: Migraines, Other (See Below) Other Neuro History: chronic fatigue Psychiatric History: Reports: Anxiety, Depression, PTSD, Suicide Attempt, Other (See Below) Other Psychiatric History: chronic fatigue, takes adderall for this Endocrine/Metabolic History: Reports: None Hematologic History: Reports: None Immunologic History: Reports: None Oncologic (Cancer) History: Reports: None Dermatologic History: Reports: Eczema - Infectious Disease History Infectious Disease History: Reports: Chicken Pox - Past Surgical History Head Surgeries/Procedures: Reports: None HEENT Surgical History: Reports: Naso-Sinus Surgery, Other (See Below) Other HEENT Surgeries/Procedures: septoplasty Cardiovascular Surgical History: Reports: None Respiratory Surgical History: Reports: None GI Surgical History: Reports: Colonoscopy, Hernia Repair/Other Female Surgical History: Reports: Breast Reduction Endocrine Surgical History: Reports: None Neurological Surgical History: Reports: C-Spine Other Neurological Surgeries/Procedures: hx anterior cervical disectomy and fusion Musculoskeletal Surgical History: Reports: Other (See Below) Other Musculoskeletal Surgeries/Procedures:: rt hand surgery 1st finger Oncologic Surgical History: Reports: None Dermatological Surgical History: Reports: None Social & Family History - Family History Family Medical History: Noncontributory - Tobacco Use Smoking Status *Q: Never Smoker Second Hand Smoke Exposure: No - Caffeine Use Caffeine Use: Reports: Coffee, Soda - Recreational Drug Use Recreational Drug Use: No ED ROS GENERAL - Review of Systems Review Of Systems: ROS reveals no pertinent complaints other than HPI. ED EXAM, SKIN/RASH Exam: See Below (See dictation) Course - Vital Signs Last Recorded V/S: Last Vital Signs Temp 35.3 C 01/23/19 21:52 Pulse 112 H 01/23/19 21:52 Resp 18 01/23/19 21:52 BP 120/86 01/23/19 21:52 Pulse Ox 98 01/23/19 21:52 - Orders/Labs/Meds Orders: Active Orders 24 hr Category Date Time Status Fingers Second Digit Lt F1 [CR] Stat Exams 01/23/19 21:59 Taken Meds: Medications Discontinued Medications Generic Name Dose Route Start Last Admin Trade Name To PRN Reason Stop Dose Admin Bacitracin 1 dose 01/23/19 22:07 01/23/19 22:27 Bacitracin Oint 1 Gm TOP 01/23/19 22:08 1 dose ONETIME ONE Administration Lidocaine HCl Confirm 01/23/19 22:04 01/23/19 22:08 Xylocaine-Mpf 1% Administered 01/23/19 22:05 Not Given Dose 5 mls @ as directed .ROUTE .STK-MED ONE Lidocaine HCl 10 ml 01/23/19 21:59 01/23/19 22:08 Xylocaine 1% INJECT 01/23/19 22:00 Not Given ONETIME ONE Lidocaine HCl 5 ml 01/23/19 22:07 01/23/19 22:27 Xylocaine-Mpf 1% INJECT 01/23/19 22:08 5 ml ONETIME ONE Administration Departure - Departure Time of Disposition: 22:40 Disposition: Home, Self-Care 01 Condition: Good Clinical Impression: Hand injury - Discharge Information Referrals: PCP,None [Primary Care Provider] - Additional Instructions: The following information is given to patients seen in the emergency department who are being discharged to home. This information is to outline your options for follow-up care. We provide all patients seen in our emergency department with a follow-up referral. The need for follow-up, as well as the timing and circumstances, are variable depending upon the specifics of your emergency department visit. If you don't have a primary care physician on staff, we will provide you with a referral. We always advise you to contact your personal physician following an emergency department visit to inform them of the circumstance of the visit and for follow-up with them and/or the need for any referrals to a consulting specialist. The emergency department will also refer you to a specialist when appropriate. This referral assures that you have the opportunity for followup care with a specialist. All of these measure are taken in an effort to provide you with optimal care, which includes your followup. Under all circumstances we always encourage you to contact your private physician who remains a resource for coordinating your care. When calling for followup care, please make the office aware that this follow-up is from your recent emergency room visit. If for any reason you are refused follow-up, please contact the [facility] emergency department at and asked to speak to the emergency department charge nurse. Follow-up primary medical doctor for wound check as discussed suture removal 10- 14 days return as needed as discussed Motrin/Tylenol as directed[]
--- NOTE | 2019-01-23 22:50 | CR ---
Injury. Three views of the left hand. The 4th and 5th distal fingers are not completely imaged. Findings:: Soft tissue swelling of the 2nd finger with soft tissue defect. Normal alignment. No fractures are seen. Dictated by Diane Brown MD @ Jan 23 2019 10:47PM Signed by Dr. Diane Brown @ Jan 23 2019 10:48PM
[2019-01-24 01:10] VITALS: BP 105/70
== END 2019-01-23 22:50 | disposition home or self-care (01) ==
LOC: MW.ED 21:50
DX: S61.211A Laceration without foreign body of left index finger without damage to nail, initial encounter (principal); K21.9 Gastro-esophageal reflux disease without esophagitis; F41.9 Anxiety disorder, unspecified; F32.9 Major depressive disorder, single episode, unspecified; Z79.899 Other long term (current) drug therapy; Z88.1 Allergy status to other antibiotic agents; Z88.8 Allergy status to other drugs, medicaments and biological substances; W26.8XXA Contact with other sharp object(s), not elsewhere classified, initial encounter
CPT/HCPCS: 12002; 73140; 99283; J2001